=== PATIENT | female | born 1955 | race Hispanic/Latino ===

== ENCOUNTER 2022-05-15 14:41 | Emergency (ER) | payer MEDICARE ==
[2022-05-16 01:44] LABS: Basophils # (Auto) 0.1 K/mm3 (0.0-0.1); Basophils % (Auto) 0.9 % (0.0-1.8); Eosinophils # (Auto) 0.1 K/mm3 (0.0-0.4); Eosinophils % (Auto) 1.9 % (0.0-4.3); Hematocrit 38.8 % (30.3-42.9); Hemoglobin 12.8 gm/dl (10.1-14.3); Lymphocytes # (Auto) 1.9 K/mm3 (1.2-5.4); Lymphocytes % (Auto) 29.2 % (13.4-35.0); Mean Corpuscular HGB Conc 33 % (30-34); Mean Corpuscular Volume 98 fl (79-97); Monocytes # (Auto) 0.6 K/mm3 (0.0-0.8); Monocytes % (Auto) 8.7 % (0.0-7.3); Platelet Count 274 K/mm3 (140-440); Red Blood Count 3.96 M/mm3 (3.65-5.03); Red Cell Distribution Width 13.1 % (13.2-15.2)
[2022-05-16 02:02] LABS: Alanine Aminotransferase 21 units/L (7-56); Albumin 3.8 g/dL (3.9-5); Blood Urea Nitrogen 18 mg/dL (7-17); Calcium 8.7 mg/dL (8.4-10.2); Hemolysis Index 20
[2022-05-16 02:11] LABS: BUN/Creatinine Ratio 26
--- NOTE | 2022-05-16 03:35 | Emergency Department Report ---
ED Dizziness HPI - General Chief Complaint: Dizziness Stated Complaint: HEART PAIN Time Seen by Provider: 05/16/22 03:30 Source: patient Mode of arrival: Ambulatory Limitations: No Limitations - History of Present Illness Initial Comments: 67-year-old female presents with near syncope/dizziness that happened around 9 AM this morning when she woke up and noticed that her house was very cold. Patient got up from the bed to turn the heater on then started feeling dizzy as she got up broke up sweating and then fell and struck her right forehead and an object. She denies LOC. No other modifying or associated factors. MD Complaint: dizziness, lightheadedness, near syncope - Related Data Allergies Allergy/AdvReac Type Severity Reaction Status Date / Time Sulfa (Sulfonamide Allergy Unknown Verified 05/15/22 15:38 Antibiotics) ED Review of Systems ROS: Stated complaint: HEART PAIN Other details as noted in HPI Comment: All other systems reviewed and negative Cardiovascular: syncope Neurological: other (dizziness) ED Physical Exam - General Limitations: No Limitations General appearance: alert, in no apparent distress - Head Head exam: Present: normal inspection - Eye Eye exam: Present: normal appearance Pupils: Present: normal accommodation - ENT ENT exam: Present: normal exam, normal orophraynx, mucous membranes moist - Neck Neck exam: Present: normal inspection, full ROM. Absent: tenderness - Respiratory Respiratory exam: Present: normal lung sounds bilaterally. Absent: respiratory distress, accessory muscle use - Cardiovascular Cardiovascular Exam: Present: regular rate, normal rhythm, normal heart sounds - GI/Abdominal GI/Abdominal exam: Present: soft, normal bowel sounds. Absent: distended, tenderness - Extremities Exam Extremities exam: Present: normal inspection, full ROM, normal capillary refill. Absent: tenderness, pedal edema - Back Exam Back exam: Absent: tenderness - Neurological Exam Neurological exam: Present: alert, oriented X3 - Psychiatric Psychiatric exam: Present: normal affect, normal mood - Skin Skin exam: Present: warm, normal color ED Course Vital Signs 05/15/22 05/16/22 05/16/22 15:35 01:25 01:31 Temperature 98.8 F Pulse Rate 81 Respiratory 20 Rate Blood Pressure 94/57 Blood Pressure 152/79 [Right] O2 Sat by Pulse 100 97 95 Oximetry 05/16/22 01:45 Temperature Pulse Rate Respiratory Rate Blood Pressure 94/55 Blood Pressure [Right] O2 Sat by Pulse 98 Oximetry ED Medical Decision Making - Lab Data Result diagrams: 05/16/22 01:34 05/16/22 01:34 - EKG Data -: EKG Interpreted by Me EKG shows normal: sinus rhythm Rate: normal - EKG Data 05/16/22 03:34 Noted with normal sinus rhythm at a rate of [address] elevation or depression in this normal ECG. - Radiology Data FINDINGS: BRAIN: No hemorrhage or mass effect are seen. No evidence of acute infarction is noted. ORBITS: Normal as visualized. SOFT TISSUES OF HEAD: Normal. CALVARIUM: Normal. VISUALIZED PARANASAL SINUSES AND MASTOID AIR CELLS: Clear. ADDITIONAL FINDINGS: None. IMPRESSION: No acute intracranial abnormality. - Medical Decision Making Here with palpitation associated with syncope episode shortly after getting up from sleep this is likely vasovagal -but differential could be and not limited to seizure, symptomatic anemia, myocardial infarction, pulmonary embolism, anxiety, CVA especially posterior stroke or thyroid abnormality--in order to rule those out I will go ahead and order routine cardiopulmonary work-up that include troponin, EKG, chest x-ray, BNP, CKMB, and CBC, CMP, Urinalysis and thyroid panel for any correctable infectious process or electrolyte abnormality as a cause. Will also order CT brain for any intracranial abnormality as mentioned above. In the meantime will give ivf ns 1L bolus for hydration as most are dehydrated to begin with. Initial EKG and troponin noted to be normal--which rule out cardiac involvement--and CT head noted negative Critical care attestation.: If time is entered above; I have spent that time in minutes in the direct care of this critically ill patient, excluding procedure time. ED Disposition Clinical Impression: Vasovagal near syncope Disposition: 01 HOME / SELF CARE / HOMELESS Is pt being admited?: No Does the pt Need Aspirin: No Condition: Stable Instructions: Near-Syncope, [id number], Syncope, [id number] Additional Instructions: Increase your daily fluid to help your hydration Please take your time when getting up from sleep or from sitting to standing to give your body to adjust it homeostasis Call and schedule follow-up with your primary doctor in the next 3 to 5 days for progress Please do not hesitate to call or return to emergency if your symptoms worsen Referrals: PRIMARY CARE, [Primary Care Provider] - 3-5 Days Time of Disposition: 05:18
--- NOTE | 2022-05-16 04:36 | Cat Scan Report ---
CT HEAD WITHOUT CONTRAST INDICATION: dizziness TECHNIQUE: All CT scans at this location are performed using CT dose reduction for ALARA by means of automated exposure control. COMPARISON: None available. FINDINGS: BRAIN: No hemorrhage or mass effect are seen. No evidence of acute infarction is noted. ORBITS: Normal as visualized. SOFT TISSUES OF HEAD: Normal. CALVARIUM: Normal. VISUALIZED PARANASAL SINUSES AND MASTOID AIR CELLS: Clear. ADDITIONAL FINDINGS: None. IMPRESSION: No acute intracranial abnormality. Signer Name: Jorge Medina MD Signed: 05/16/2022 4:31 AM Workstation Name: [id number]
[2022-05-16 05:32] VITALS: BP 105/66
--- NOTE | 2022-05-16 09:31 | Electrocardiograph Report ---
[facility] Test Date: 2022-05-15 Test Time: 15:42:38 Pat Name: JOHANNY MARION Department: Room: Gender: F [employer]: SHIKHA : 1955 Requested By: PHU [place] Order Number: [id number] Reading MD: Yehuda Dexter Measurements Intervals [place] Rate: 79 P: 54 MO: 148 QRS: 24 QRSD: 98 T: 51 QT: 395 QTc: 452 Interpretive Statements Sinus rhythm No previous ECG available for comparison Electronically Signed On 05-16-2022 9:31:01 EDT by Yehuda Dexter
== END 2022-05-16 05:33 | disposition home or self-care (01) ==
LOC: ED 14:41
DX: R55 Syncope and collapse (principal); R42 Dizziness and giddiness; Z88.2 Allergy status to sulfonamides; Z79.899 Other long term (current) drug therapy
CPT/HCPCS: 36415; 70450; 80048; 80053; 84484; 85025; 93005; 99284